=== PATIENT | male | born 1980 | race African-American/Black ===

== ENCOUNTER 2017-02-07 06:21 | Day surgery (SDC) | payer OTHER ==
[~2017-02-07] VITALS: Ht 165.1 cm; Wt 59.0 kg
[~2017-02-07 06:21] MED LIST: ACET-704 PO
[2017-02-07] MEDS ORDERED: LIDOCAINE 1% PF 30 ML VIAL. ONE (06:23)
[2017-02-07] MEDS ORDERED: BUPIVACAINE MPF 0.5% 30 ML VIAL. ONE (06:23)
[2017-02-07] MEDS ORDERED: LIDOCAINE 2% PF Vial for OR 5 ML VIAL. ONE (07:04)
[2017-02-07] MEDS ORDERED: DEXAMETHASONE SOD PHOS 20 MG/5 ML VIAL. ONE (07:04)
[2017-02-07] MEDS ORDERED: ONDANSETRON PF 4 MG/2 ML VIAL. ONE (07:04)
[2017-02-07] MEDS ORDERED: fentaNYL PF VIAL 100 MCG/2 ML VIAL ONE (07:04)
[2017-02-07] MEDS ORDERED: PROPOFOL 20 ML IV ONE (07:04)
[2017-02-07] MEDS ORDERED: DESFLURANE 61 TO 120 MINUTES IH ONE (07:04)
[2017-02-07] MEDS ORDERED: MIDAZOLAM HCL/PF 2 MG/2 ML VIAL. ONE (07:04)
[2017-02-07] MEDS ORDERED: IV RINGERS,LACTATED 1000ML 1,000 ML IV SCH ×2 (07:15→09:42)
--- NOTE | 2017-02-07 09:15 | DISCH ---
DISCHARGE INSTRUCTIONS Condition on Discharge Condition on Discharge: Stable Activity After Discharge Activity Instructions for Disc: No restrictions Other activity instructions: leave splint in place Bathing Instructions: Shower-keep dressing dry Weight Bearing Status after Di: Non weight bearing Diet after Discharge Diet after Discharge: Regular Wound Incision Care Wound/Incision Care: Ice to area for comfort, Keep wound/cast CDI, Keep wound elevated, Do not change dressing Contacting the DRManish after DC Call your doctor for: Concerns you may have Follow-Up Follow up with: Reilly in 2wks KEVIN ABREU II, MD February 07, 2017 09:15
--- NOTE | 2017-02-07 09:19 | PDOC ---
BRIEF OPERATIVE NOTE Date: February 07, 2017 Pre-Op Diagnosis Closed R DR cortez Post-Op Diagnosis same Procedure Performed ORIF R DR CORTEZ Surgeon [facility] Instructor Randell Anesthesia Type: General, Local Blood Loss 25mL Complications none KEVIN ABREU II, MD February 07, 2017 09:19
[2017-02-07] MEDS ORDERED: HYDROmorphone 2 MG/ML VIAL IV PRN (09:45)
[2017-02-07] MEDS ORDERED: LIDOCAINE 1% 1 ML SYRINGE. ID PRN (09:45)
[2017-02-07] MEDS ORDERED: fentaNYL PF VIAL 100 MCG/2 ML VIAL IV PRN (09:45)
[2017-02-07] MEDS ORDERED: PROCHLORPERAZINE 10 MG/2 ML VIAL. IV PRN (09:45)
[2017-02-07] MEDS ORDERED: ONDANSETRON PF 4 MG/2 ML VIAL. IV PRN (09:45)
[2017-02-07] MEDS: fentaNYL PF VIAL 100 MCG/2 ML VIAL IV PRN ×4 (09:53→10:22)
[2017-02-07] MEDS: MORPHINE SULFATE 2 MG/ML DISP.SYRIN. IV PRN ×2 (10:07→10:29)
[2017-02-07] MEDS ORDERED: ESMOLOL 100 MG/10 ML VIAL. IV ONE (10:22)
[2017-02-07 10:34] VITALS: BP 174/88
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
== END 2017-02-07 11:15 | disposition home or self-care (01) ==
LOC: SURG 06:21
PROVIDERS: ATTEND Orthopaedic Surgery Sports Medicine
DX: S52.591A Other fractures of lower end of right radius, initial encounter for closed fracture (principal); X58.XXXA Exposure to other specified factors, initial encounter; Y93.89 Activity, other specified; Y92.89 Other specified places as the place of occurrence of the external cause; Y99.9 Unspecified external cause status; Z72.89 Other problems related to lifestyle; Z87.39 Personal history of other diseases of the musculoskeletal system and connective tissue
CPT/HCPCS: 25607; 76000; C1713; J0690; J1100; J2250; J2270; J2405; J2704; J3010; J3490

== ENCOUNTER 2020-06-27 14:56 | Emergency (ER) | payer MEDICAID, OTHER ==
[~2020-06-27] VITALS: Ht 165.1 cm; Wt 54.5 kg
[2020-06-27] MEDS ORDERED: DEXAMETHASONE SOD PHOS 4 MG/ML VIAL IVP ONE (16:15)
[2020-06-27] MEDS ORDERED: KETOROLAC 30 MG/ML VIAL. IVP ONE (16:30)
[2020-06-27] MEDS ORDERED: ALBUTEROL SULFATE 8GM INHALER. INH ONE (16:30)
--- NOTE | 2020-06-27 16:40 | RAD ---
AP portable chest radiograph 06/27/2020 Clinical History: Shortness of breath. An AP erect portable digital radiograph of the chest was obtained. No previous studies are available for comparison. The cardiac and mediastinal silhouettes are within normal limits in size and configuration. No pulmonary infiltrate is seen. No pleural effusion or pneumothorax is noted. The osseous structures are grossly intact. IMPRESSION: No acute abnormality is seen. Electronically signed by: Tanner Luciano MD (06/27/2020 4:37 PM) [id number]
[2020-06-27 16:54] LABS: BASO % 0 % (0-3); EOS # 0.2 x10^3/uL (0.0-0.7); EOS % 1 % (0-3); HEMATOCRIT 46.9 % (39.0-53.0); HEMOGLOBIN 16.3 g/dL (13.0-17.5); LYMPH # 1.6 x10^3/uL (1.0-4.8); LYMPH % 15 % (24-48); MEAN CORPUSCULAR HEMOGLOBIN 34 pg (25-35); MEAN CORPUSCULAR HGB CONC 35 g/dL (31-37); MEAN CORPUSCULAR VOLUME 97 fL (79-100); MONO # 0.8 x10^3/uL (0.0-1.1); MONO % 7 % (0-9); NEUT # 8.6 x10^3/uL (1.8-7.7); NEUT % 77 % (31-73); PLATELET COUNT 184 x10^3/uL (140-400); RED BLOOD COUNT 4.85 x10^6/uL (4.30-5.70); RED CELL DISTRIBUTION WIDTH 13.9 % (11.5-14.5); WHITE BLOOD COUNT 11.3 x10^3/uL (4.0-11.0)
[2020-06-27 17:02] LABS: GFR 101.7; POTASSIUM 3.9 mmol/L (3.5-5.1)
[2020-06-27 17:14] VITALS: BP 142/83
[2020-06-27] MEDS ORDERED: PRED50TA PO (17:17)
--- NOTE | 2020-06-27 17:17 | ED.ADGEN ---
Past Medical History Past Medical History: No Pertinent History Past Surgical History: No Surgical History Smoking Status: Current Every Day Smoker Alcohol Use: Occasionally Drug Use: Marijuana General Adult EDM: Chief Complaint: SHORTNESS OF BREATH HPI: HPI: Patient is a 39-year-old male with past medical history of asthma who presents to the emergency room complaining of chest tightness, wheezing, shortness of breath. He has had similar episodes to this in the past that has been quite some time. He believes that this is due to the weather change. He denies any productive cough, fever, URI symptoms. He does not believe he has been exposed to coronavirus. He is not having any difficulty walking or doing his daily activities. He does not have any inhalers at home. Review of Systems: Review of Systems: General: Denies fever, chills, sweats, fatigue Eyes: Denies drainage, blurred vision, eye redness HENT: Denies rhinorrhea, sore throat, earache Respiratory: Denies cough. Reports wheezing, shortness of breath Cardiac: Denies edema, palpitations. Reports chest tightness GI: Denies abdominal pain, Nausea, vomiting MSK: Denies back pain, neck pain Skin: Denies rash, jaundice Neuro: Denies headache, dizziness Psychiatric: Denies SI/HI Current Medications: Current Medications Medications (Trade) Dose Ordered Sig/Polo Start Time Stop Time Status Last Admin Dose Admin Albuterol Sulfate (Ventolin Hfa) 2 puff ONCE ONCE 06/27/20 16:30 06/27/20 16:31 DC 06/27/20 16:42 2 PUFF Dexamethasone Sodium Phosphate (Decadron) 10 mg 1X ONCE 06/27/20 16:15 06/27/20 16:16 DC 06/27/20 16:41 10 MG Ketorolac Tromethamine (Toradol 30mg Vial) 30 mg 1X ONCE 06/27/20 16:30 06/27/20 16:31 DC 06/27/20 16:41 30 MG Allergies: Allergies: Allergies Coded Allergies Type Severity Reaction Last Updated Verified No Known Drug Allergies 07/16/14 No Physical Exam: PE: General: Awake, alert, NAD. Well Nourished, well hydrated. Cooperative HEENT: Atraumatic, EOMI, PERRL, airway patent, moist oral mucosa Neck: Supple, trachea midline Respiratory: CTA bilaterally, normal effort, diffuse wheezing CV: RRR, no murmur, cap refill <2 GI: Soft, nondistended, nontender, no masses MSK: No obvious deformities Skin: Warm, dry, intact Neuro: A&O x3, speech NL, sensory and motor grossly intact, no focal deficits Psych: Normal affect, normal mood, not suicidal or homicidal Current Patient Data: Labs: Laboratory Tests Test 06/27/20 16:45 White Blood Count 11.3 x10^3/uL (4.0-11.0) H Red Blood Count 4.85 x10^6/uL (4.30-5.70) Hemoglobin 16.3 g/dL (13.0-17.5) Hematocrit 46.9 % (39.0-53.0) Mean Corpuscular Volume 97 fL (79-100) Mean Corpuscular Hemoglobin 34 pg (25-35) Mean Corpuscular Hemoglobin Concent 35 g/dL (31-37) Red Cell Distribution Width 13.9 % (11.5-14.5) Platelet Count 184 x10^3/uL (140-400) Neutrophils (%) (Auto) 77 % (31-73) H Lymphocytes (%) (Auto) 15 % (24-48) L Monocytes (%) (Auto) 7 % (0-9) Eosinophils (%) (Auto) 1 % (0-3) Basophils (%) (Auto) 0 % (0-3) Neutrophils # (Auto) 8.6 x10^3/uL (1.8-7.7) H Lymphocytes # (Auto) 1.6 x10^3/uL (1.0-4.8) Monocytes # (Auto) 0.8 x10^3/uL (0.0-1.1) Eosinophils # (Auto) 0.2 x10^3/uL (0.0-0.7) Basophils # (Auto) 0.0 x10^3/uL (0.0-0.2) Sodium Level 139 mmol/L (136-145) Potassium Level 3.9 mmol/L (3.5-5.1) Chloride Level 103 mmol/L (98-107) Carbon Dioxide Level 28 mmol/L (21-32) Anion Gap 8 (6-14) Blood Urea Nitrogen 7 mg/dL (8-26) L Creatinine 1.0 mg/dL (0.7-1.3) Estimated GFR (Cockcroft-Gault) 101.7 Glucose Level 85 mg/dL (70-99) Calcium Level 9.0 mg/dL (8.5-10.1) Laboratory Tests 06/27/20 16:45 Laboratory Tests 06/27/20 16:45 Vital Signs: Vital Signs Date Time Temp Pulse Resp B/P (MAP) Pulse Ox O2 Delivery O2 Flow Rate FiO2 06/27/20 15:45 97.4 67 17 155/90 (111) 99 Room Air 97.4 EKG: EKG: [] Heart Score: Risk Factors: Risk Factors: DM, Current or recent (<one month) smoker, HTN, HLP, family history of CAD, obesity. Risk Scores: Score 0 - 3: 2.5% MACE over next 6 weeks - Discharge Home Score 4 - 6: 20.3% MACE over next 6 weeks - Admit for Clinical Observation Score 7 - 10: 72.7% MACE over next 6 weeks - Early Invasive Strategies Radiology/Procedures: Radiology/Procedures: [] Course & Med Decision Making: Course & Med Decision Making Pertinent Labs and Imaging studies reviewed. (See chart for details) Patient is a 39-year-old with a history of asthma who presents the emergency room complaining of shortness of breath, wheezing, and chest tightness. Presentation is concerning for an acute asthma exacerbation. Upon arrival to the Emergency Room, patient is not requiring oxygen. Chest x-ray is necessary as patient does have fever, chest pain, or oxygen requirement. Upon reevaluation, patient is feeling much better after inhaler and Toradol. Patient does not need magnesium at this time. He will be discharged home with steroids. Patient's test results and vitals while in the ED were fully reviewed and discussed with the patient. Patient is stable and at this time does not need admission to the hospital. We have discussed strict return precautions and the importance of following up with their Primary Care Physician. Patient stated understanding and was given an opportunity to ask any questions. Patient is in agreement with plan. Shamiron Disclaimer: Codie Disclaimer: This electronic medical record was generated, in whole or in part, using a voice recognition dictation system. Departure Departure Impression: Primary Impression: Asthma exacerbation Disposition: 01 DC HOME SELF CARE/HOMELESS Condition: STABLE Referrals: NO PCP (PCP) Patient Instructions: Asthma, Child, [id number] Scripts Prednisone (PREDNISONE) 50 Mg Tablet 1 TAB PO DAILY, #5 TAB Prov: JEFERSON CORDOBA MD 06/27/20 JEFERSON CORDOBA MD Jun 27, 2020 17:17
== END 2020-06-27 17:35 | disposition home or self-care (01) ==
LOC: ER 14:56
DX: J45.901 Unspecified asthma with (acute) exacerbation (principal); R07.89 Other chest pain; R06.02 Shortness of breath; F17.200 Nicotine dependence, unspecified, uncomplicated; F12.90 Cannabis use, unspecified, uncomplicated
CPT/HCPCS: 36415; 71045; 80048; 85025; 96374; 96375; 99284; J1100; J1885